=== PATIENT | female | born 1960 | race Caucasian/White ===

== ENCOUNTER 2016-09-02 14:40 | Emergency (ER) | payer OTHER ==
[~2016-09-02] VITALS: Ht 152.4 cm; Wt 72.0 kg
[2016-09-02 15:00] VITALS: Ht 152.4 cm; Wt 72.0 kg
[2016-09-02] MEDS ORDERED: ACETAMINOPHEN 325 MG TAB PO ONE (18:00)
--- NOTE | 2016-09-02 18:27 | RADRPT ---
PROCEDURE: XR Foot. CLINICAL INDICATION: Pain. TECHNIQUE: Three views of the right foot. COMPARISON: None available. FINDINGS: No fracture or dislocation is identified. There are dorsal and plantar calcaneal enthesophytes. T here is no significant soft tissue swelling. IMPRESSION: 1. No fracture or dislocation of the right foot. RPTAT: HTAR .Atif Guardado MD, MD Date Time Electronically viewed and signed by .Atif Guardado MD, on 09/02/2016 18:27 .R/
--- NOTE | 2016-09-02 18:28 | RADRPT ---
PROCEDURE: XR Ankle. CLINICAL INDICATION: Right ankle pain. TECHNIQUE: Three views of the right ankle. COMPARISON: None available. FINDINGS: No fracture or dislocation is identified. The ankle mortise appears intact in this nonstressed stud y. There are dorsal and plantar calcaneal enthesophytes. There is mild soft tissue swelling over the lateral ankle. IMPRESSION: 1. No fracture or dislocation of the right ankle. RPTAT: HTAR .Atif Guardado MD, MD Date Time Electronically viewed and signed by .Atif Guardado MD, on 09/02/2016 18:28 .R/
--- NOTE | 2016-09-02 18:38 | ERD ---
ER Documentation Chief Complaint Date/Time DATE: 09/02/16 TIME: 18:25 Chief Complaint Pt with R foot pain X 8 months, pt twisted it. HPI Patient is a 55-year-old female who presents to the ED with right foot pain 2 weeks. Patient states that she possibly twisted her ankle 8 months ago and states that the pain comes and goes and is primarily located on the dorsum of her foot. She denies radiation of pain. Denies pain above her ankle. She states that she is able to ambulate without pain. She denies leg pain or leg swelling. Denies chest pain, cough, shortness of breath or difficulty breathing. Denies headache or dizziness. Denies blurry vision. ROS All systems reviewed and are negative except as per history of present illness. PMhx/Soc Medical and Surgical Hx: pt denies Medical Hx, pt denies Surgical Hx History of Surgery: No Anesthesia Reaction: No Hx Neurological Disorder: No Hx Respiratory Disorders: No Hx Cardiac Disorders: No Hx Psychiatric Problems: No Hx Miscellaneous Medical Probl: Yes (hypertension) Hx Alcohol Use: No Hx Substance Use: No Hx Tobacco Use: No FmHx Family History: No coronary disease, No diabetes, No other Physical Exam Vitals Vital Signs Date Time Temp Pulse Resp B/P Pulse Ox O2 Delivery O2 Flow Rate FiO2 09/02/16 15:00 98.5 101 97 184/80 97 Physical Exam GENERAL: Well-developed, well-nourished female. Appears in no acute distress. HEAD: Normocephalic, atraumatic. EYES: Pupils are equally reactive bilaterally. EOMs grossly intact. No conjunctival erythema. ENT: Moist mucous membranes. No uvula deviation. No kissing tonsils. No exudates. NECK: Supple. No lymphadenopathy or thyromegaly. No meningismus. negative kernig. negative brudinski. LUNG: Clear to auscultation bilaterally. No rhonchi, wheezing, rales or coarse breath sounds. HEART: Regular rate and rhythm. No murmurs, rubs or gallops. Extremities: Equal pulses bilaterally. No peripheral clubbing, cyanosis or edema. No unilateral leg swelling. Tenderness to the base dorsum of right foot. No step-offs or deformities. No open wounds or lacerations. Sensation intact bilaterally. Range of motion intact. Negative Homans sign. No pain at the malleoli. No pain above the ankle. No proximal fibula pain. NEUROLOGIC: Alert and oriented. Moving all four extremities. 5/5 strength in all extremities. Normal speech. Steady gait. SKIN: Normal color. Warm and dry. No rashes or lesions. Capillary refill < 2 seconds Results 24 hrs Current Medications Medications (Trade) Dose Ordered Sig/Cynthia Route PRN Reason Start Time Stop Time Status Last Admin Dose Admin Acetaminophen (Tylenol Tab) 650 mg ONCE ONCE PO 09/02/16 18:00 09/02/16 18:01 DC 09/02/16 17:50 Procedures/MDM ER COURSE: I kept the patient and/or family informed of laboratory and diagnostic imaging results throughout the emergency room course. IMAGING STUDIES [place] [address] Radiology Main Line: [phone] DIAGNOSTIC IMAGING REPORT Patient: ANÍBAL LEON : 1960 Age: 55 Sex: F MR #: [id number] DOS: 09/02/16 1737 Ordering MD: SHANEKA KENDALL PA-C Location: [facility] Room/Bed: PROCEDURE: XR Ankle. CLINICAL INDICATION: Right ankle pain. TECHNIQUE: Three views of the right ankle. COMPARISON: None available. FINDINGS: No fracture or dislocation is identified. The ankle mortise appears intact in this nonstressed study. There are dorsal and plantar calcaneal enthesophytes. There is mild soft tissue swelling over the lateral ankle. IMPRESSION: 1. No fracture or dislocation of the right ankle. RPTAT: HTAR .Atif Guardado MD, Date Time Electronically viewed and signed by .Atif Guardado MD, on 09/02/2016 18:28 .R/ CC: SHANEKA KENDALL PA-C [place] [address] Radiology Main Line: [phone] DIAGNOSTIC IMAGING REPORT Patient: ANÍBAL LEON: 1960 Age: 55 Sex: F MR #: [id number] DOS: 09/02/16 1737 Ordering MD: SHANEKA KENDALL PA-C Location: [facility] Room/Bed: PROCEDURE: XR Foot. CLINICAL INDICATION: Pain. TECHNIQUE: Three views of the right foot. COMPARISON: None available. FINDINGS: No fracture or dislocation is identified. There are dorsal and plantar calcaneal enthesophytes. There is no significant soft tissue swelling. IMPRESSION: 1. No fracture or dislocation of the right foot. RPTAT: HTAR .Atif Guardado MD, Date Time Electronically viewed and signed by .Atif Guardado MD, on 09/02/2016 18:27 .R/ CC: SHANEKA KENDALL PA-C MEDICAL DECISION MAKING: This is a 55 year old female who presents with right foot and ankle pain x 2 weeks. Vital signs were reviewed. Patient is afebrile. Patient is not hypoxic. Patient is not toxic or ill-appearing. Her x-rays read by radiologist unremarkable. Patient likely has muscle strain versus sprain. Patient also has plantar fasciitis. Low suspicion for dislocation, fracture, septic joint, compartment syndrome, osteomyelitis, cellulitis, avascular necrosis, neurological injury, vascular injury, tendon laceration. Patient does have slightly elevated blood pressure here in the ED. I have low suspicion for hypertensive urgency, emergency or endorgan damage. Advised patient to follow- up with her primary care for better management of her blood pressure. Patient was given an Kip wrap here in the ED. Patient was neurovascularly intact post displacement. DISCHARGE: At this time, patient is stable for discharge and outpatient management with no new complaints during the ER course. Patient was sent home with copy of imaging report, Kip wrap, Naprosyn. Patient will be discharged home with instructions to recheck for new or worsening symptoms such as fever, nausea, weakness, LOC and to follow up with primary care in the next 1-2 days. Patient was advised to return to the ER for any new or worsening symptoms. Plan was discussed and patient and/or family understands and agrees. Home instructions were given. Departure Diagnosis: Primary Impression: Foot pain Laterality: right Qualified Code: M79.671 - Right foot pain Additional Impression: Plantar fasciitis Condition: Stable SHANEKA KENDALL PA-C September 02, 2016 18:38
[2016-09-02] MEDS ORDERED: NAPR-260 PO (18:54)
== END 2016-09-02 19:25 | disposition home or self-care (01) ==
LOC: FTE 14:40
DX: M79.671 Pain in right foot (principal); M72.2 Plantar fascial fibromatosis; I10 Essential (primary) hypertension
CPT/HCPCS: 73610; 73630; Z7502; Z7610